=== PATIENT | female | born 1995 | race American Indian/Alaskan Native ===

== ENCOUNTER 2016-12-20 12:42 | Inpatient (IN) | payer MEDICAID ==
[~2016-12-20] VITALS: Ht 152.4 cm; Wt 65.9 kg
[2016-12-20] MEDS ORDERED: SODIUM CHLORIDE FLUSH 10ML SYR IVF ONE (13:00)
[2016-12-20] MEDS ORDERED: SODIUM CHLORIDE 0.9% 1,000ML IVBOLUS ONE ×2 (13:00→16:00)
[2016-12-20 13:23] LABS: HEMOGLOBIN 10.7 g/dL (11.7-16.4)
[2016-12-20 13:30] LABS: BLOOD UREA NITROGEN 19 mg/dL (7-18)
[2016-12-20 13:33] LABS: ASPARTATE AMINO TRANSFERASE 11 U/L (15-37)
[2016-12-20 13:45] LABS: DIFF TOTAL CELLS COUNTED 100 CELL DIFF
[2016-12-20 13:47] LABS: ANISOCYTOSIS 1+; MICROCYTOSIS 1+; VERIFY COUNTS? YES
[2016-12-20 13:48] LABS: LARGE PLATELETS 1+
[2016-12-20] MEDS ORDERED: METOCLOPRAMIDE 5 MG/ML, 2ML IVPush ONE (14:00)
[2016-12-20] MEDS ORDERED: DIPHENHYDRAMINE 50 MG/ML, 1ML IVPush ONE (14:00)
[2016-12-20] MEDS ORDERED: KETOROLAC 30 MG/1 ML IVPush ONE (14:00)
[2016-12-20 14:03] LABS: PH, VENOUS 7.407 pH (7.320-7.420)
[2016-12-20] MEDS ORDERED: INSU100C SQ-INSULIN (14:04)
[2016-12-20] MEDS ORDERED: DIPHENHYDRAMINE 50 MG/ML, 1ML ONE (14:09)
[2016-12-20] MEDS ORDERED: KETOROLAC 30 MG/1 ML ONE (14:09)
[2016-12-20] MEDS ORDERED: METOCLOPRAMIDE 5 MG/ML, 2ML ONE (14:09)
[2016-12-20] MEDS ORDERED: POTASSIUM CHLORIDE 40 MEQ in SODIUM CHLORIDE 0.9% 500 ML IV ONE (16:00)
[2016-12-20 16:18] LABS: PATH.CAST-FLAG NOT PRESENT; SPERM-FLAG NOT PRESENT; SRC-FLAG NOT PRESENT; XTAL-FLAG NOT PRESENT; YLC-FLAG NOT PRESENT
[2016-12-20] MEDS ORDERED: CEFTRIAXONE PMX 1GM/50ML 50 ML ONE (16:48)
[2016-12-20] MEDS: SODIUM CHLORIDE 0.9% 1,000 ML IV SCH ×2 (16:53→22:34)
[2016-12-20] MEDS ORDERED: CEFTRIAXONE PMX 1GM/50ML 50 ML IVPB ONE (17:00)
[2016-12-20] MEDS: INSULIN ASPART 100 UNITS/ML, PEN SQ-INSULIN SCH ×2 (17:00→21:00)
[2016-12-20] MEDS ORDERED: ACETAMINOPHEN 325 MG TABLET PO PRN (17:00)
[2016-12-20] MEDS ORDERED: CEFTRIAXONE PMX 1GM/50ML 50 ML IV SCH (17:00)
[2016-12-20 17:35] LABS: TOTAL IRON BINDING CAPACITY 305 mcg/dL (250-450)
[2016-12-20 22:09] LABS: BLOOD UREA NITROGEN 17 mg/dL (7-18)
[2016-12-20] MEDS: INSULIN DETEMIR 100 UNITS/ML, PEN SQ-INSULIN SCH (22:33)
[2016-12-20 22:43] VITALS: BP 112/71
[2016-12-21 03:53] VITALS: BP 130/76
[2016-12-21] MEDS: SODIUM CHLORIDE 0.9% 1,000 ML IV SCH ×2 (06:07→16:07)
[2016-12-21] MEDS: INSULIN ASPART 100 UNITS/ML, PEN SQ-INSULIN SCH ×4 (07:00→21:09)
[2016-12-21 07:23] LABS: BLOOD UREA NITROGEN 18 mg/dL (7-18); HEMATOCRIT 29.8 % (34.6-47.8); HEMOGLOBIN 9.8 g/dL (11.7-16.4); WHITE BLOOD COUNT 15.6 x10^3/uL (4.5-13.2)
[2016-12-21 07:45] VITALS: BP 109/72
[2016-12-21 08:33] LABS: DIFF TOTAL CELLS COUNTED 100 CELL DIFF
[2016-12-21 08:35] LABS: ANISOCYTOSIS 1+; MICROCYTOSIS 1+; VERIFY COUNTS? YES
[2016-12-21] MEDS: INSULIN DETEMIR 100 UNITS/ML, PEN SQ-INSULIN SCH ×2 (08:52→17:12)
[2016-12-21] MEDS ORDERED: ENOXAPARIN 30 MG/0.3 ML SQ SCH (09:30)
[2016-12-21] MEDS: NEUTRA PHOS K 250 MG TABLET PO SCH ×2 (10:24→21:09)
[2016-12-21] MEDS: CEFTRIAXONE PMX 2GM/50ML 50 ML IV SCH (10:24)
[2016-12-21 16:00] VITALS: BP 126/77
[2016-12-21] MEDS ORDERED: INSULIN DETEMIR 100 UNITS/ML, PEN SQ-INSULIN SCH (17:00)
[2016-12-21] MEDS ORDERED: LEVOFLOXACIN/PMX 750MG/150ML 150 ML IV SCH (18:00)
[2016-12-21] MEDS ORDERED: PHARMACY MAY ADJ FOR RENAL FX MC PRN (18:00)
[2016-12-21 20:34] VITALS: BP 121/76
[2016-12-22 01:38] VITALS: BP 117/77
[2016-12-22] MEDS: SODIUM CHLORIDE 0.9% 1,000 ML IV SCH (04:45)
[2016-12-22] MEDS: INSULIN DETEMIR 100 UNITS/ML, PEN SQ-INSULIN SCH (05:45)
[2016-12-22 06:03] LABS: HEMATOCRIT 30.1 % (34.6-47.8); HEMOGLOBIN 10.1 g/dL (11.7-16.4); WHITE BLOOD COUNT 13.3 x10^3/uL (4.5-13.2)
[2016-12-22 06:25] LABS: ASPARTATE AMINO TRANSFERASE 14 U/L (15-37); BLOOD UREA NITROGEN 20 mg/dL (7-18)
[2016-12-22] MEDS: INSULIN ASPART 100 UNITS/ML, PEN SQ-INSULIN SCH (08:27)
[2016-12-22] MEDS: NEUTRA PHOS K 250 MG TABLET PO SCH (08:27)
[2016-12-22] MEDS: CEFTRIAXONE PMX 2GM/50ML 50 ML IV SCH (08:27)
[2016-12-22 08:34] VITALS: BP 76/77
[2016-12-22] MEDS ORDERED: POTASSIUM CHLORIDE 20 MEQ TAB.ER.PRT PO ONE (09:00)
[2016-12-22] MEDS ORDERED: SODIUM CHLORIDE 0.9% 1,000 ML IV SCH (09:00)
[2016-12-22] MEDS ORDERED: ENOXAPARIN 40 MG/0.4 ML SQ SCH (10:00)
[2016-12-23 12:07] LABS: HEPATITIS B SURFACE AG SCREEN Negative (Negative); HEPATITIS Be AB Negative (Negative); HEPATITIS Be AG Negative (Negative); HEPATITIS C VIRUS AB <0.1 s/co ratio (0.0-0.9)
== END 2016-12-22 10:17 | disposition left against medical advice (07) | DRG 871 ==
LOC: ED 16:18 → EDIP 16:43 → 4WST 19:26
PROVIDERS: ADMIT Internal Medicine; ATTEND Internal Medicine
DX: A41.50 Gram-negative sepsis, unspecified (principal); E10.10 Type 1 diabetes mellitus with ketoacidosis without coma; N17.9 Acute kidney failure, unspecified; E87.1 Hypo-osmolality and hyponatremia; E10.21 Type 1 diabetes mellitus with diabetic nephropathy; E88.09 Other disorders of plasma-protein metabolism, not elsewhere classified; S06.0X9A Concussion with loss of consciousness of unspecified duration, initial encounter; N13.6 Pyonephrosis; E83.39 Other disorders of phosphorus metabolism; D50.9 Iron deficiency anemia, unspecified; E86.0 Dehydration; E87.6 Hypokalemia; N28.82 Megaloureter; R65.20 Severe sepsis without septic shock; Z72.0 Tobacco use; Z79.4 Long term (current) use of insulin; Z83.3 Family history of diabetes mellitus; Z91.19 Patient's noncompliance with other medical treatment and regimen; Z88.8 Allergy status to other drugs, medicaments and biological substances; R16.0 Hepatomegaly, not elsewhere classified; M54.9 Dorsalgia, unspecified
CPT/HCPCS: 36415; 70450; 71010; 72125; 74176; 80048; 80053; 81001; 82010; 82800; 82803; 82947; 82962; 83036; 83540; 83550; 83605; 83690; 83735; 84100; 84145; 84443; 84703; 85025; 86704; 86705; 86706; 86707; 86803; 87040; 87077; 87086; 87186; 87340; 87350; 96365; 96366; 96368; 96375; J0696; J1650; J1815; J1885; J1956; J3480; J1200; J2765; J7030; J7040